=== PATIENT | female | born 1950 | race Hispanic/Latino ===

== ENCOUNTER 2018-04-01 20:18 | Emergency (ER) | payer MEDICARE, SELFPAY ==
[~2018-04-01 20:18] MED LIST: Iopamidol 370 76% 100 ML VIAL ONE
[2018-04-01 21:09] LABS: #Basophils 0.1 thou/uL (0.0-0.2); #Eosinphils 0.2 thou/uL (0.0-0.7); #Lymphocytes 2.2 thou/uL (1.20-3.40); #Monocytes 0.7 thou/uL (0.11-0.59); %Basophils 0.9 % (0.0-1.0); %Eosinophils 3.8 % (0.0-10.0); %Lymphocytes 35.9 % (21.0-51.0); %Monocytes 11.4 % (0.0-10.0); %Neutrophils 48.1 % (42.0-75.0); Hemoglobin 11.5 g/dL (12.0-16.0); Mean Corpuscular Volume 90.4 fl (81.0-99.0); Mean Platelet Volume 9.8 fL (7.4-10.4); Platelet Count 204 thou/uL (130-400); RBC Distribution Width 12.9 % (11.5-14.5); White Blood Cell (WBC) Count 6.3 thou/uL (4.8-10.8)
[2018-04-01] MEDS ORDERED: Lorazepam 2 MG/ML VIAL ONE (21:09)
--- NOTE | 2018-04-01 21:18 | RAD ---
CHEST PA AND LATERAL: 04/01/18 HISTORY: 67-year-old female with history of dyspnea and wheezing. Postop midline sternotomy and coronary artery bypass. Left ICD. Upper range of normal size heart. No confluent pneumonia, overt edema or pleural effusion. IMPRESSION: Postop midline sternotomy and coronary artery bypass and left ICD. Upper range of motion to minimally enlarged heart without evidence for acute edema, confluent pneumonia, pleural effusion or other acut e process. POS: [facility]
[2018-04-01 21:23] LABS: ALT (SGPT) 39 U/L (8-55); AST (SGOT) 28 U/L (5-34); Albumin 3.8 g/dL (3.4-4.8); Alkaline Phosphatase 90 U/L (40-150); Anion Gap 13 mmol/L (10-20); BUN (Urea Nitrogen) 12 mg/dL (9.8-20.1); Bilirubin, Total 0.7 mg/dL (0.2-1.2); Calc. Creatinine Clearance 0 mL/min (70-130); Calcium 9.3 mg/dL (7.8-10.44); Carbon Dioxide 24 mmol/L (23-31); Chloride 107 mmol/L (98-107); Estimated GFR-MDRD 89; Globulin 2.9 g/dL (2.4-3.5); Glucose 157 mg/dL (80-115); Potassium 4.1 mmol/L (3.5-5.1); Protein, Total 6.7 g/dL (6.0-8.3); Sodium 140 mmol/L (136-145)
[2018-04-01 21:24] LABS: Troponin I Less than 0.010 ng/mL (< 0.028)
--- NOTE | 2018-04-01 22:51 | CT ---
CT ANGIOGRAM CHEST WITH 3D RENDERIN04/01/18 HISTORY: 67-year-old female with history of dyspnea. There is some small, less than 0.5 cm diameter, nodules in the left lower lobe. There is some minimal linear scarring posteriorly in the left lower lobe. No central pulmonary embolus. A more peripheral pulmonary artery branches, particularly in the lower lung zone are less than optimally imaged because of motion and contrast bolus density. No pericardial effusion or pleural effusion. Evidence for smal l hiatal hernia. IMPRESSION: No evidence for central pulmonary artery thrombosis. The more peripheral pulmonary artery branches pa rticularly in the lower lobes are less than optimally imaged because of motion artifact and contrast density. Several small less than 0.5 cm diameter nodules in the left lower lobe. Minimal linear scarr ing in the left lower lobe. Small hiatal hernia. POS: [facility]
== END 2018-04-01 23:16 | disposition left against medical advice (07) ==
LOC: NAV ERS 20:18
DX: F41.9 Anxiety disorder, unspecified (principal); I25.10 Atherosclerotic heart disease of native coronary artery without angina pectoris; R91.8 Other nonspecific abnormal finding of lung field; I11.0 Hypertensive heart disease with heart failure; I50.9 Heart failure, unspecified; E11.9 Type 2 diabetes mellitus without complications; E78.5 Hyperlipidemia, unspecified; Z79.82 Long term (current) use of aspirin; Z79.84 Long term (current) use of oral hypoglycemic drugs; Z79.899 Other long term (current) drug therapy
CPT/HCPCS: 71046; 71275; 80053; 82553; 83880; 84484; 85025; 85379; 93005; 94760; 96374; J2060